=== PATIENT | female | born 1960 | race Caucasian/White ===

== ENCOUNTER 2022-08-24 16:20 | Emergency (ER) | payer MEDICAID ==
[~2022-08-24] VITALS: Ht 152.4 cm; Wt 82.0 kg
[2022-08-24] MEDS ORDERED: IBUP-2029 PO (20:10)
[2022-08-24] MEDS: IBUPROFEN 600MG TABLET PO NR ×2 (20:15→20:44)
[2022-08-24 20:44] VITALS: BP 220/100
== END 2022-08-24 20:50 | disposition home or self-care (01) ==
LOC: ER 16:33
DX: S82.402A Unspecified fracture of shaft of left fibula, initial encounter for closed fracture (principal); I10 Essential (primary) hypertension; E11.9 Type 2 diabetes mellitus without complications; Z98.890 Other specified postprocedural states; W01.0XXA Fall on same level from slipping, tripping and stumbling without subsequent striking against object, initial encounter; Y93.89 Activity, other specified; Y92.89 Other specified places as the place of occurrence of the external cause; Y99.8 Other external cause status
CPT/HCPCS: 29515; 73610; 99283; Z7610